=== PATIENT | male | born 1985 | race Caucasian/White ===

== ENCOUNTER 2020-12-15 16:31 | Outpatient (REF) | payer BC, SELFPAY ==
--- NOTE | ~2020-12-15 | XR_ITS ---
EXAMINATION: XR TIBIA AND FIBULA, LEFT CLINICAL INFORMATION: Question bony lesion. COMPARISON: None TECHNIQUE: AP and lateral views of the left tibia and fibula were obtained. FINDINGS: The bones and soft tissues are normal. No fracture. No osseous lesions. There is no abnormal periosteal thickening. XR/XR tibia fibula LT 2V IMPRESSION: Normal left tibia and fibula.
[2020-12-15 17:44] LABS: MANUAL DIFF FLAG NO
[2020-12-15 17:58] LABS: Basophils Percent Auto 0.3 % (0-2); Eosinophils Absolute Auto 0.1 X10*3/uL (0.0-0.4); Eosinophils Percent Auto 1.3 % (0-4); Hematocrit 42.9 % (42-52); Hemoglobin 14.6 g/dl (14.0-18.0); Imm Gran Abs Auto 0.01 X10*3/uL (0.00-0.03); Imm Gran Pct Auto 0.1 % (0.0-0.4); Lymphocytes Absolute Auto 3.2 X10*3/uL (1.2-4.9); Lymphocytes Percent Auto 42.6 % (20-40); Mean Corpuscular Volume 88.1 fL (80-98); Mean Platelet Volume 10.8 fL (9.4-12.4); Monocytes Absolute Auto 0.8 X10*3/uL (0.1-1.2); Monocytes Percent Auto 10.9 % (2-11); Neutrophils Absolute Auto 3.4 X10*3/uL (2.0-8.3); Neutrophils Percent Auto 44.8 % (45-73); Platelet Count 233 X10*3/uL (160-400); Red Blood Count 4.87 X10*6/uL (4.60-5.80); Red Cell Distribution Width 12.6 % (11.0-16.0); White Blood Count 7.6 X10*3/uL (4.8-10.8)
[2020-12-15 18:19] LABS: Alanine Aminotransferase 22 U/L (0-40); Albumin Level 4.6 g/dL (3.5-5.0); Alkaline Phosphatase 66 U/L (39-117); Anion Gap 13 (12-20); Aspartate Amino Transferase 18 U/L (5-37); Bilirubin Total 0.5 mg/dL (0.0-1.0); Blood Urea Nitrogen 10 mg/dL (9-16); Calcium 9.4 mg/dL (8.4-10.2); Carbon Dioxide 25 mmol/L (22-29); Chloride 105 mmol/L (96-108); Cholesterol 181 mg/dL; Estimated Glomerular Filt Rate > 60; Glucose Random 80 mg/dL (60-115); HDL Cholesterol 50 mg/dL; LDL Cholesterol Calculated 117 mg/dl; Sodium 139 mmol/L (135-145); Total Protein 7.7 g/dL (6.5-8.0); Triglycerides 73 mg/dL
[2020-12-15 18:39] LABS: Thyroid Stimulating Hormone 1.13 uIU/mL (0.32-4.0)
== END 2020-12-15 16:32 | disposition home or self-care (01) ==
LOC: HO.XRAY 16:31
PROVIDERS: PCP Internal Medicine; Visit Provider Internal Medicine
DX: Z00.00 Encounter for general adult medical examination without abnormal findings (principal); M89.8X6 Other specified disorders of bone, lower leg
CPT/HCPCS: 36415; 73590; 80053; 80061; 84443; 85025

== ENCOUNTER 2021-07-20 17:11 | Outpatient (REF) | payer BC, SELFPAY ==
[2021-07-20 17:24] LABS: MANUAL DIFF FLAG NO
[2021-07-20 17:36] LABS: Basophils Percent Auto 0.2 % (0-2); Eosinophils Absolute Auto 0.1 X10*3/uL (0.0-0.4); Eosinophils Percent Auto 0.8 % (0-4); Hematocrit 44.1 % (42.0-52.0); Hemoglobin 15.2 g/dl (14.0-18.0); Imm Gran Abs Auto 0.02 X10*3/uL (0.00-0.03); Imm Gran Pct Auto 0.2 % (0.0-0.4); Lymphocytes Absolute Auto 3.2 X10*3/uL (1.2-4.9); Lymphocytes Percent Auto 38.7 % (20-40); Mean Corpuscular HGB Conc 34.5 g/dl (31.0-36.0); Mean Corpuscular Hemoglobin 29.7 pg (27.0-33.0); Mean Corpuscular Volume 86.1 fL (80.0-98.0); Mean Platelet Volume 10.6 fL (9.4-12.4); Monocytes Absolute Auto 0.7 X10*3/uL (0.1-1.2); Monocytes Percent Auto 8.3 % (2-11); Neutrophils Absolute Auto 4.3 x10*3/uL (2.0-8.3); Neutrophils Percent Auto 51.8 % (45-73); Platelet Count 219 X10*3/uL (160-400); Red Blood Count 5.12 X10*6/uL (4.60-5.80); Red Cell Distribution Width 11.9 % (11.0-16.0); White Blood Count 8.3 X10*3/uL (4.8-10.8)
[2021-07-20 17:54] LABS: Alanine Aminotransferase 18 U/L (0-40); Albumin Level 4.6 g/dL (3.5-5.0); Alkaline Phosphatase 60 U/L (39-117); Anion Gap 10 (12-20); Aspartate Amino Transferase 16 U/L (5-37); Bilirubin Total 0.4 mg/dL (0.0-1.0); Blood Urea Nitrogen 15 mg/dL (9-16); C Reactive Protein 0.15 mg/dL (< or = 0.50); Calcium 9.7 mg/dL (8.4-10.2); Carbon Dioxide 29 mmol/L (22-29); Chloride 105 mmol/L (96-108); Estimated Glomerular Filt Rate > 60; Glucose Random 89 mg/dL (60-115); Potassium 4.2 mmol/L (3.3-5.1); Sodium 140 mmol/L (135-145); Total Protein 7.7 g/dL (6.5-8.0)
== END 2021-07-20 17:12 | disposition home or self-care (01) ==
LOC: HO.LAB 17:11
PROVIDERS: PCP Internal Medicine; Visit Provider Internal Medicine
DX: R10.9 Unspecified abdominal pain (principal)
CPT/HCPCS: 36415; 80053; 85025; 86140

== ENCOUNTER 2022-01-20 14:54 | Outpatient (REF) | payer BC, SELFPAY ==
[2022-01-20 15:08] LABS: MANUAL DIFF FLAG NO
[2022-01-20 15:26] LABS: Basophils Percent Auto 0.3 % (0-2); Eosinophils Absolute Auto 0.1 X10*3/uL (0.0-0.4); Eosinophils Percent Auto 1.5 % (0-4); Hematocrit 40.5 % (42.0-52.0); Hemoglobin 13.9 g/dl (14.0-18.0); Imm Gran Abs Auto 0.02 X10*3/uL (0.00-0.03); Imm Gran Pct Auto 0.3 % (0.0-0.4); Lymphocytes Absolute Auto 2.9 X10*3/uL (1.2-4.9); Lymphocytes Percent Auto 38.6 % (20-40); Mean Corpuscular HGB Conc 34.3 g/dl (31.0-36.0); Mean Corpuscular Hemoglobin 29.2 pg (27.0-33.0); Mean Corpuscular Volume 85.1 fL (80.0-98.0); Mean Platelet Volume 11.1 fL (9.4-12.4); Monocytes Absolute Auto 0.6 X10*3/uL (0.1-1.2); Monocytes Percent Auto 8.3 % (2-11); Neutrophils Absolute Auto 3.8 x10*3/uL (2.0-8.3); Platelet Count 189 X10*3/uL (160-400); Red Blood Count 4.76 X10*6/uL (4.60-5.80); Red Cell Distribution Width 12.1 % (11.0-16.0); White Blood Count 7.4 X10*3/uL (4.8-10.8)
[2022-01-20 15:44] LABS: Alanine Aminotransferase 13 U/L (0-40); Albumin Level 4.5 g/dL (3.5-5.0); Alkaline Phosphatase 50 U/L (39-117); Anion Gap 13 (12-20); Aspartate Amino Transferase 12 U/L (5-37); Bilirubin Total 0.7 mg/dL (0.0-1.0); Blood Urea Nitrogen 15 mg/dL (9-16); Calcium 9.3 mg/dL (8.4-10.2); Carbon Dioxide 27 mmol/L (22-29); Chloride 104 mmol/L (96-108); Cholesterol 165 mg/dL; Estimated Glomerular Filt Rate > 60; Glucose Fasting 82 mg/dL (60-99); HDL Cholesterol 46 mg/dL; LDL Cholesterol Calculated 104 mg/dl; Sodium 140 mmol/L (135-145); Total Protein 7.2 g/dL (6.5-8.0); Triglycerides 76 mg/dL
== END 2022-01-20 14:55 | disposition home or self-care (01) ==
LOC: HO.LAB 14:54
PROVIDERS: PCP Internal Medicine; Visit Provider Internal Medicine
DX: Z00.00 Encounter for general adult medical examination without abnormal findings (principal)
CPT/HCPCS: 36415; 80053; 80061; 85025

== ENCOUNTER 2023-01-23 11:08 | Outpatient (REF) | payer BC, SELFPAY ==
--- NOTE | ~2023-01-23 | XR_ITS ---
EXAMINATION: XR KNEE, RIGHT CLINICAL INFORMATION: Reason for Exam RIGHT KNEE PAIN COMPARISON: None TECHNIQUE: 4 views of the knee FINDINGS: No acute fracture or dislocation. Joint spaces are maintained. No joint effusion. Soft tissues are unremarkable. XR/XR knee RT 4V IMPRESSION: * No acute osseous abnormality. * Joint spaces are maintained without significant degenerative change.
[2023-01-23 11:23] LABS: MANUAL DIFF FLAG NO
[2023-01-23 12:08] LABS: Basophils Percent Auto 0.3 % (0-2); Eosinophils Absolute Auto 0.1 X10*3/uL (0.0-0.4); Eosinophils Percent Auto 1.7 % (0-4); Hemoglobin 14.9 g/dl (14.0-18.0); Lymphocytes Absolute Auto 2.3 X10*3/uL (1.2-4.9); Lymphocytes Percent Auto 38.6 % (20-40); Mean Corpuscular HGB Conc 33.9 g/dl (31.0-36.0); Mean Corpuscular Hemoglobin 29.7 pg (27.0-33.0); Mean Corpuscular Volume 87.8 fL (80.0-98.0); Mean Platelet Volume 11.4 fL (9.4-12.4); Monocytes Absolute Auto 0.4 X10*3/uL (0.1-1.2); Monocytes Percent Auto 6.6 % (2-11); Neutrophils Absolute Auto 3.1 x10*3/uL (2.0-8.3); Neutrophils Percent Auto 52.8 % (45-73); Platelet Count 206 X10*3/uL (160-400); Red Blood Count 5.01 X10*6/uL (4.60-5.80); Red Cell Distribution Width 12.5 % (11.0-16.0); White Blood Count 5.9 X10*3/uL (4.8-10.8)
[2023-01-23 13:21] LABS: Anion Gap 12 (12-20); Blood Urea Nitrogen 11 mg/dL (9-16); Calcium 9.1 mg/dL (8.4-10.2); Carbon Dioxide 24 mmol/L (22-29); Chloride 109 mmol/L (96-108); Estimated Glomerular Filt Rate > 60; Glucose Random 118 mg/dL (60-115); Iron 135 mcg/dL (45-160); Percent Iron Saturation 53 % (15-50); Potassium 3.7 mmol/L (3.3-5.1); Sodium 141 mmol/L (135-145); Total Iron Binding Capacity 253 mcg/dL (228-428); Unsaturated Iron Binding 118 ug/dL
== END 2023-01-23 11:09 | disposition home or self-care (01) ==
LOC: HO.LAB 11:08
PROVIDERS: PCP Internal Medicine; Visit Provider Internal Medicine
DX: D64.9 Anemia, unspecified (principal); J30.1 Allergic rhinitis due to pollen; M25.561 Pain in right knee
CPT/HCPCS: 36415; 73564; 80048; 83540; 85025

== ENCOUNTER 2023-12-28 16:34 | Outpatient (REF) | payer BC, SELFPAY ==
--- NOTE | ~2023-12-28 | XR_ITS ---
EXAMINATION: XR FOOT, RIGHT CLINICAL INFORMATION: Nodule on back of heel for about one week, right heel pain. COMPARISON: None available. TECHNIQUE: AP, lateral, and oblique views of the right foot. FINDINGS: Prominent posterior calcaneal spur. Bone mineralization is normal. Mild degenerative changes in the first metatarsophalangeal and tarsometatarsal joints. XR/XR foot RT min 3V IMPRESSION: 1. Prominent posterior calcaneal spur. 2. Mild degenerative changes in the first metatarsophalangeal and tarsometatarsal joints.
== END 2023-12-28 16:35 | disposition home or self-care (01) ==
LOC: HO.XRAY 16:34
PROVIDERS: PCP Internal Medicine; Visit Provider Internal Medicine
DX: M79.671 Pain in right foot (principal)
CPT/HCPCS: 73630

== ENCOUNTER 2024-02-21 14:51 | Outpatient (AMB) | payer BC, SELFPAY ==
--- NOTE | 2024-02-21 14:53 | MHC.OFFVIS ---
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 DOI not exactly sure may have hurt his heel while playing baseball. 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 He currently states he has pain in his right heel that comes in the morning and upon applying pressure after waking up however his pain goes away soon after. He also reports a bump around his Achilles tendon. He has not had any known injury in the past. Review of Systems Const All systems reviewed & are unremarkable except as noted in HPI and below Physical Exam Const General: cooperative, healthy appearing, comfortable, no acute distress, well developed and alert Orientation/consciousness: patient oriented x3 HEENT Head: Yes normal to inspection, Yes normocephalic and Yes atraumatic Eyes General: appearance normal, both eyes and all related structures Resp Effort & Inspection: normal respiratory effort and able to speak in complete sentences Cardio Rate: regular rate Peripheral pulses: Peripheral pulses 2+ throughout GI Palpation (GI): Soft to palpation Skin Lesions: no lesions Rashes: no rashes Neuro General: patient oriented x3 Extrem Other: Right heel: Normal to inspection. He does have a bony prominence at the calcaneus of the insertion point of Achilles. No palpable defect. Sensation intact and pulses are present. Results Reviewed Results Reviewed: XR foot RT min 3V IMPRESSION: 1. Prominent posterior calcaneal spur. 2. Mild degenerative changes in the first metatarsophalangeal and tarsometatarsal joints. Assessment & Plan Assessment & Plan (1) Right Achilles tendinitis: Code(s): M76.61 - Achilles tendinitis, right leg Category: Medical Plan We discussed options which include PT, NSAIDs and modification of activity. The patient will proceed with PT and NSAIDs. If symptoms persist, he will contact me for foot and ankle referral, otherwise, PRN. Orders: Orders PT Evaluation and Treatment 02/21/24 M76.61 - Achilles tendinitis, right leg Patient Instructions: Scribed for Shantell Pavon PA-C, by Donavon Sapp, medical doctor md/medical director, on 02/21/2024 at 3:15 PM EST.? I, Shantell Pavon PA-C, have personally reviewed and agree with the information entered by the scribe. Coding Level of Care Code New Pt Level 3 (53856) Complex EM visit Add On G2211 Diagnoses Right Achilles tendinitis M76.61
== END 2024-02-21 15:23 | disposition home or self-care (01) ==
PROVIDERS: PCP Internal Medicine; Visit Provider Physician Assistant
DX: M76.61 Achilles tendinitis, right leg (principal)
CPT/HCPCS: 99203

== ENCOUNTER → 2024-02-21 14:51 | Outpatient (BNVA) | payer BC, SELFPAY | PROVIDERS: PCP Internal Medicine; Visit Provider Physician Assistant ==

== ENCOUNTER 2024-04-14 17:00 | Outpatient (RCR) | payer BC, SELFPAY ==
--- NOTE | 2024-03-17 18:19 | MHC.PT.EP ---
[facility] [place] [facility] [place] [facility] [address] [phone] F: [phone] F: [phone] F: [phone] F: [phone] Physical Therapy Plan of Care Date of Evaluation: 03/17/24 Date of Surgery: Diagnosis: RIGHT achilles tendonitis (post calcaneal spur) Assessment: Dariusz is a pleasant 39 y.o. male who is referred to PT by Shantell Pavon of [facility] with Dx of RIGHT Achilles tendonitis (calcaneal spur seen on x-ray). Patient impairments include pain and localized swelling at Achilles, limited ankle ROM, weakness in R LE Patient current functional limitations are prolonged standing, walking long distances, running to play softball. Patient will benefit from skilled PT to address aforementioned impairments and functional limitations to meet established goals. Frequency and Duration: The patient will be seen 2x/week for 4 weeks Short Term Goals: 2 weeks Patient demonstrates consistency and independence with HEP to self manage symptoms. Fan Blade Truer Goals: 4 weeks Patient presents with increased R ankle AROM 0 degrees to be able to ambulate normally with heel to toe gait pattern. Patient presents with increased R ankle eversion strength 4+/5 to be able to play softball. Treatment Plan: Modalities to reduce pain, spasms and effusion. Manual therapy to restore motion and function. Therapeutic exercise to improve strength and flexibility. Neuromuscular re-education for posture and balance. Therapeutic activities to return to functional activities of daily living. Electronically signed by: Alan Nance, PT, DPT Please sign and return to therapist. Thank you for your referral.
--- NOTE | 2024-05-23 15:01 | MHC.PT.DC ---
[facility] [place] [facility] [place] Office [place] Office [address] [phone] F: [phone] F: [phone] F: [phone] F: [phone] Physical Therapy Discharge Report Diagnosis: RIGHT achilles tendonitis (post calcaneal spur) Date of Surgery: Date of Evaluation: 03/17/24 Date of Discharge: 05/23/24 Treatments to Date: 6 Cancellations to Date: 1 No Shows to Date: 0 Discharge Status: Improved Function Independent with HEP Patient Elected to Stop Discharge Summary: Dariusz was last seen in PT on 04/14/24, the assessment reads, Dariusz presents with decrease tightness of calf musculature. Began to introduce eccentrics to progress strengthening. Pt had increased pain with eccentric heel raises, so they were deferred at this time. Pt tolerated standing sliders and backward step down well. Continue to progress strengthening as tolerable. He ceased attending PT after this visit, he was independent with HEP. He is discharged from PT at this time. Electronically signed by: Alan Nance, PT, DPT Please sign and return to therapist. Thank you for your referral.
== END 2024-05-23 15:01 | disposition home or self-care (01) ==
LOC: HO.PT 17:00
PROVIDERS: PCP Internal Medicine; Visit Provider Physician Assistant
DX: M76.61 Achilles tendinitis, right leg (principal)
CPT/HCPCS: 97035; 97110; 97112; 97140; 97161; 97530

== ENCOUNTER 2024-11-28 14:21 | Outpatient (REF) | payer BC, SELFPAY ==
[2024-11-28 15:38] LABS: MANUAL DIFF FLAG NO
[2024-11-28 16:54] LABS: Basophils Percent Auto 0.4 % (0-2); Eosinophils Absolute Auto 0.2 X10*3/uL (0.0-0.4); Eosinophils Percent Auto 2.6 % (0-4); Hematocrit 40.6 % (42.0-52.0); Hemoglobin 14.1 g/dl (14.0-18.0); Imm Gran Abs Auto 0.01 X10*3/uL (0.00-0.03); Imm Gran Pct Auto 0.1 % (0.0-0.4); Lymphocytes Absolute Auto 3.3 X10*3/uL (1.2-4.9); Lymphocytes Percent Auto 42.1 % (20-40); Mean Corpuscular HGB Conc 34.7 g/dl (31.0-36.0); Mean Corpuscular Hemoglobin 30.1 pg (27.0-33.0); Mean Corpuscular Volume 86.6 fL (80.0-98.0); Monocytes Absolute Auto 0.7 X10*3/uL (0.1-1.2); Monocytes Percent Auto 8.7 % (2-11); Neutrophils Absolute Auto 3.7 x10*3/uL (2.0-8.3); Neutrophils Percent Auto 46.1 % (45-73); Platelet Count 207 X10*3/uL (160-400); Red Blood Count 4.69 X10*6/uL (4.60-5.80); Red Cell Distribution Width 12.7 % (11.0-16.0); White Blood Count 7.9 X10*3/uL (4.8-10.8)
[2024-11-28 17:00] LABS: Estimated Average Glucose 97 mg/dL; Total Hemoglobin (HGBA1C) 3779.1884 umol/L
[2024-11-28 17:16] LABS: Alanine Aminotransferase 28 U/L (0-40); Albumin Level 4.7 g/dL (3.5-5.0); Alkaline Phosphatase 54 U/L (39-117); Anion Gap 11 (12-20); Aspartate Amino Transferase 20 U/L (5-37); Bilirubin Direct 0.1 mg/dL (0.0-0.5); Bilirubin Total 0.3 mg/dL (0.0-1.0); Blood Urea Nitrogen 18 mg/dL (9-16); Calcium 9.1 mg/dL (8.4-10.2); Carbon Dioxide 24 mmol/L (22-29); Chloride 108 mmol/L (96-108); Cholesterol 174 mg/dL (<200); Estimated Glomerular Filt Rate > 60; Glucose Random 90 mg/dL (60-115); HDL Cholesterol 52 mg/dL (>40); LDL Cholesterol Calculated 104 mg/dL (<100); Potassium 3.8 mmol/L (3.3-5.1); Sodium 139 mmol/L (135-145); Total Protein 7.1 g/dL (6.5-8.0); Triglycerides 90 mg/dL (<150)
== END 2024-11-28 14:22 | disposition home or self-care (01) ==
LOC: HO.LAB 14:21
PROVIDERS: PCP Internal Medicine; Visit Provider Physician Assistant
DX: Z00.00 Encounter for general adult medical examination without abnormal findings (principal); Z13.1 Encounter for screening for diabetes mellitus; I10 Essential (primary) hypertension; M77.9 Enthesopathy, unspecified; J30.2 Other seasonal allergic rhinitis
CPT/HCPCS: 36415; 80048; 80061; 80076; 83036; 85025

== ENCOUNTER 2024-11-28 14:21 | Outpatient (AMB) | payer BC, SELFPAY ==
--- OUTSIDE RECORDS SUMMARY | 2024-11-28 14:23 | XMS_ITS | Patient Health Record ---
Author Organization [facility] Address [address] [place] [address] Care Team Providers Care Automotive Services Manager Name Role Phone Messi Downs MD Primary Care Provider Lyndsey Chow Unavailable [phone] Reason For Referral No Information Encounters Encounter Location Date Provider Diagnosis [facility] [address] [place] [address] 04/17/2024 Lyndsey Reid Plan Of Treatment No Information
--- NOTE | 2024-11-28 14:26 | A.OFFPC_ITS ---
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 Hypertension-blood pressure initially elevated 154/100, on recheck 132/86. He reports he did not take his losartan this morning Seasonal allergies-reports ongoing rhinorrhea and sinus tenderness with postnasal drip. Has been taking loratadine but feels this is not helping. Has not tried any other antihistamines or nasal sprays Bone spur-right posterior calcaneus with associated right Achilles tendonitis. Has been going through his 2nd round of physical therapy without much improvement. He is looking for referral to Podiatry He has no other concerns today. He only reports occasional alcohol use. He has never smoked cigarettes. He does not use any illicit substances or marijuana. He is fairly active and plays softball often but is limited now by the bone spur. Not always following healthy diet. Health maintenance: Low risk for colon cancer-initiate colonoscopies at age 45 ROS: General: No fevers, malaise, unintentional weight loss HEENT: No blurred vision, diplopia. No sore throat, nasal congestion, rhinorrhea, sinus pain, ear pain Neck - no adenopathy Cardiovascular: No chest pain, palpitations, or leg edema Respiratory: No shortness of breath, wheezing, cough GI: No abdominal pain, nausea, vomiting, diarrhea, constipation, melena, hematochezia : No dysuria, hematuria, increased urinary frequency, decreased urinary output MSK: No myalgia, back pain, arthralgias Neuro: No headaches, weakness, paresthesias Psych: no depression/anxiery. No AH/VH. No SI/HI Skin: No rashes or lesions EXAM: Constitutional - Awake and Alert, No apparent distress Eyes - PERRLA, EOMI. Anicteric Nose- septum midline, nares clear, no sinus tenderness Mouth/throat- mucosa moist, tongue and uvula midline, no erythema/edema or tonsillar adenopathy. Neck-trachea midline, thyroid symmetric without palpable nodules, no adenopathy Cardiovascular - S1S2, RRR, No edema Respiratory - Normal lung expansion, Normal respiratory effort, No respiratory distress, CTA bilaterally Gastrointestinal - NT / ND; +BS; No rebound or guarding - No CVA tenderness Extremities - no calf tenderness bilaterally, no swelling Musculoskeletal - Normal inspection, normal ROM Skin - Warm/Dry Neurological - Alert & oriented x3, CN II-XII in tact, 5/5 strength BUE and BLE Psychological - Appropriate affect [facility] Medical History (Updated 11/28/24 @ 15:03 by MARILIN Andrade) HTN (hypertension) Seasonal allergies Surgical History (Updated 11/28/24 @ 15:04 by MARILIN Andrade) S/P tonsillectomy Family History (Updated 11/28/24 @ 15:05 by MARILIN Andrade) Father HTN (hypertension) Coronary artery disease Mother Hyperlipidemia Diabetes Social History Alcohol intake: current Alcohol intake frequency: a few times a month Patient Tobacco Use Status: Never used Tobacco Questionnaire PHQ-9 Over the last 2 weeks, how often have you been bothered by any of the following problems? 1. Little interest or pleasure in doing things: not at all 2. Feeling down, depressed, or hopeless: not at all 3. Trouble falling or staying asleep, or sleeping too much: not at all 4. Feeling tired or having little energy: not at all 5. Poor appetite or overeating: not at all 6. Feeling bad about yourself - or that you are a failure or have let yourself or your family down: not at all 7. Trouble concentrating on things, such as reading the newspaper or watching television: not at all 8. Moving or speaking so slowly that other people could have noticed. Or the opposite - being so fidgety or restless that you have been moving around a lot more than usual: not at all 9. Thoughts that you would be better off or of hurting yourself in some way: not at all Total score: 0 Source: Developed by Drs. Jr Oreilly, Aakash Alexander and colleagues, with an educational fatimah from [employer]. Thrive Questionnaire Date Thrive assessed: 11/28/24 I am a: Patient What is your living situation today?: I have a steady place to live Within the past 12 months, did the food you bought not last and you didn't have the money to get more?: Never true Within the past 12 months, did you worry whether your food would run out before you got money to buy more?: Never true Do you have trouble paying for medicines?: No Do you have trouble getting transportation to medical appointments?: No Do you have trouble paying your heating and electricity bill?: No Do you have trouble taking care of your child, family member or friend?: No Do you have trouble with day-to-day activities such as bathing, preparing meals, shopping, managing finances, etc.?: No Are you currently unemployed and looking for a job?: No Are you interested in more education?: No Please select the resources that you would like help with: None THRIVE Score: 0 CHLOE-7 AMB Questionnaire CHLOE-7 Date CHLOE - 7 assessed: 11/28/24 Feeling nervous, anxious, or on edge: 0 = Not at all Not being able to stop or control worryin = Not at all Worrying too much about different things: 0 = Not at all Trouble relaxin = Not at all Being so restless that it is hard to sit still: 0 = Not at all Becoming easily annoyed or irritable: 0 = Not at all Feeling afraid as if something awful might happen: 0 = Not at all Total CHLOE-7 score (0-4 normal; 5-9 mild; 10-14 moderate; 15-21 severe): 0 Source: Developed by Drs. Jr Oreilly, Aakash Alexander and colleagues, with an educational fatimah from [employer]. Physical exam (Primary Care) Vital Signs: Last Vital Signs Temp 98.1 F 11/28/24 14:29 Pulse 78 11/28/24 14:29 Resp 16 11/28/24 14:29 BP 132/86 11/28/24 15:14 Pulse Ox 98 11/28/24 14:29 Oxygen Delivery Method Room Air 11/28/24 14:29 BMI result Body Mass Index 30.4 Tobacco/Smoking Status: Tobacco use Status Patient Tobacco Use Status Never used Tobacco 11/28/24 15:04 Coding Level of Care Code New Pt Level 3 (88173) Est Pt Prev Care 18-39y(99627) Diagnoses Routine medical exam Z00.00 HTN (hypertension) I10 Bone spur M77.9 Seasonal allergies J30.2 Assessment & Plan Assessment & Plan (1) Routine medical exam: Code(s): Z00.00 - Encounter for general adult medical examination without abnormal findings Category: Medical Plan: Overall, well appearing 39 year old male. Plan as below. Return in 6 months for htn (2) HTN (hypertension): Code(s): I10 - Essential (primary) hypertension Category: Medical Plan: Controlled with blood pressure on recheck 132/86. Continue losartan 25 mg daily. Importance of compliance discussed with patient. Low-sodium diet (3) Bone spur: Code(s): M77.9 - Enthesopathy, unspecified Category: Medical Plan: X-ray reviewed. Can continue with physical therapy for associated right Achilles tendonitis. Also recommend ibuprofen/Tylenol or ice. Recommend getting insole for calcaneal support. Referred to Podiatry (4) Seasonal allergies: Code(s): J30.2 - Other seasonal allergic rhinitis Category: Medical Plan: Discontinue loratadine. Initiate fexofenadine as well as fluticasone nasal spray. Recommend keeping the windows closed as well as humidifier Plan Routine screening labs as ordered below Routine colonoscopy at age 45 Continue following for annual skin exams and use sun protection Annual eye exams Wear seat belt in car Recommend regular exercise and healthy diet Follow up in 6m Orders: Orders Hemoglobin A1c Today Z00.00 - Encounter for general adult medical examination without abnormal findings Liver Panel Today Z00.00 - Encounter for general adult medical examination without abnormal findings Basic Metabolic Panel Today Z00.00 - Encounter for general adult medical examination without abnormal findings Complete Blood Count Auto Diff Today Z00.00 - Encounter for general adult medical examination without abnormal findings Lipid Panel Today Z00.00 - Encounter for general adult medical examination without abnormal findings Referrals Podiatry Referral M77.9 - Enthesopathy, unspecified, Z00.00 - Encounter for general adult medical examination without abnormal findings Medications: New fluticasone propionate 50 mcg/actuation (Allergy Relief (fluticasone)) administer into each nostril 1 spray intranasal Q12H 16 grams 5RF fexofenadine 180 mg PO DAILY 90 tabs 1RF
[2024-11-28 14:29] VITALS: BP 154/100; PULSE 78; RESP 16; TEMP 36.7; O2SAT 98; BMI 30.4
[2024-11-28 15:14] VITALS: BP 132/86
== END 2024-11-28 15:55 | disposition home or self-care (01) ==
LOC: HO.HMCHD 14:22
PROVIDERS: PCP Internal Medicine; Visit Provider Physician Assistant
DX: Z00.00 Encounter for general adult medical examination without abnormal findings (principal); I10 Essential (primary) hypertension; M77.9 Enthesopathy, unspecified; J30.2 Other seasonal allergic rhinitis